=== PATIENT | female | born 1980 | race Two or more races ===

== ENCOUNTER 2023-03-14 21:11 | Inpatient (IN) | payer MEDICAID, OTHER ==
[~2023-03-14] VITALS: Ht 162.6 cm; Wt 81.8 kg
[2023-03-14] MEDS ORDERED: DICYCLOMINE HCL 10 MG CAPSULE PO PRN (23:00)
[2023-03-14] MEDS ORDERED: METOCLOPRAMIDE HCL 5 MG/ML 2 ML VIAL IVP PRN (23:00)
[2023-03-14] MEDS ORDERED: LOPERAMIDE HCL 2 MG CAPSULE PO PRN (23:00)
[2023-03-14] MEDS ORDERED: LORazepam 2 MG/ML VIAL IVP PRN (23:00)
[2023-03-14] MEDS ORDERED: SODIUM CHLORIDE 0.9% 1,000 ML IV ONE (23:00)
[2023-03-15 00:03] LABS: BASOPHILS % (AUTO) 0.9 % (0.0-2.0); EOSINOPHILS % (AUTO) 5.3 % (1.0-6.0); HEMATOCRIT 35.5 % (36-46); HEMOGLOBIN 11.6 g/dL (12.0-16.0); LYMPHOCYTES # (AUTO) 2.6 K/uL (1.0-4.8); LYMPHOCYTES % (AUTO) 42.2 % (22.0-44.0); MEAN CORPUSCULAR HEMOGLOBIN 27.1 pg (26.0-34.0); MEAN CORPUSCULAR HGB CONC 32.8 G/dL (31.0-37.0); MEAN CORPUSCULAR VOLUME 83 fL (80-100); MONOCYTES # (AUTO) 0.5 K/uL (0.1-1.0); NEUTROPHILS # (AUTO) 2.7 K/uL (1.8-7.7); NEUTROPHILS % (AUTO) 43.6 % (40.0-70.0); PLATELET COUNT (AUTO) 312 K/uL (150-450); RED BLOOD CELL COUNT(AUTO) 4.28 MIL/uL (4.00-5.20); RED CELL DISTRIBUTION WIDTH 14.2 % (11.5-14.5)
[2023-03-15 00:12] LABS: ANION GAP 8 mmol/L (8-16); CALCIUM, TOTAL 8.7 mg/dL (8.8-10.5); CARBON DIOXIDE 31 mmol/L (22-29); CHLORIDE 103 mmol/L (98-107); GLOMERULAR FILTR. RATE CALC > 60 mL/min (>60); GLUCOSE,RANDOM 91 mg/dL (70-110); POTASSIUM 3.6 mmol/L (3.5-5.1); SODIUM SERUM 142 mmol/L (136-145)
[2023-03-15 00:16] LABS: COVID AG,FIA SOURCE NASOPHARYNGEAL
[2023-03-15 00:18] LABS: ALANINE AMINOTRANSFERASE 25 U/L (12-78); ALBUMIN 3.2 g/dL (3.4-5.0); ALKALINE PHOSPHATASE 81 U/L (46-116); ASPARTATE AMINOTRANSFERASE 19 U/L (15-37); BILIRUBIN,TOTAL 0.2 mg/dL (0.1-1.0); TOTAL PROTEIN, SERUM 6.9 g/dL (6.4-8.2)
[2023-03-15 00:20] LABS: APPEARANCE,URINE CLEAR (CLEAR); BILIRUBIN,URINE NEGATIVE (NEGATIVE); GLUCOSE, URINE (UA) NEGATIVE (NEGATIVE); KETONES,URINE NEGATIVE (NEGATIVE); LEUKOCYTE ESTERASE ,URINE SMALL (NEGATIVE); NITRATE,URINE POSITIVE (NEGATIVE); OCCULT BLOOD,URINE NEGATIVE (NEGATIVE); PROTEIN,URINE NEGATIVE (NEGATIVE); SPECIFIC GRAVITIY, URINE 1.023 (1.003-1.030); UROBILINOGEN,URINE <=1.0 mg/dL (<=1.0)
[2023-03-15 00:26] LABS: AMMONIA < 10 umol/L (11-32)
[2023-03-15 00:27] LABS: AMPHET/METH SCREEN,URINE POSITIVE (NEGATIVE); BARBITURATE SCREEN, URINE NEGATIVE (NEGATIVE); BENZODIAZEPINES SCREEN,URINE POSITIVE (NEGATIVE); CANNABINOID SCREEN,URINE POSITIVE (NEGATIVE); COCAINE SCREEN,URINE NEGATIVE (NEGATIVE); METHADONE SCREEN, URINE NEGATIVE (NEGATIVE); OPIATE SCREEN,URINE NEGATIVE (NEGATIVE); PHENCYCLIDINE SCREEN,URINE NEGATIVE (NEGATIVE)
[2023-03-15 00:39] LABS: RBC,URINE None Seen /HPF (0-2)
[2023-03-15 00:40] LABS: BACTERIA,URINE Many /HPF (None Seen)
[2023-03-15] MEDS ORDERED: CEPHALEXIN MONOHYDRATE 500 MG CAPSULE PO ONE (01:45)
[2023-03-15 20:20] VITALS: BP 137/88
[2023-03-15] MEDS: TEMAZEPAM 15 MG CAPSULE PO SCH (20:59)
[2023-03-16 05:12] VITALS: BP 143/99
[2023-03-16 07:30] VITALS: BP 143/89
[2023-03-16] MEDS: OXcarbazepine 300 MG TABLET PO SCH ×2 (11:48→19:58)
[2023-03-16] MEDS: SERTRALINE HCL 50 MG TABLET PO SCH (11:48)
[2023-03-16 16:00] VITALS: BP 119/80
[2023-03-16 19:34] VITALS: BP 138/86
[2023-03-16] MEDS: TEMAZEPAM 15 MG CAPSULE PO SCH (19:57)
[2023-03-16] MEDS ORDERED: TraZODone HCL 100 MG TABLET PO SCH (21:00)
[2023-03-17 04:20] VITALS: BP 121/57
[2023-03-17 07:39] VITALS: BP 108/63
[2023-03-17] MEDS: SERTRALINE HCL 50 MG TABLET PO SCH (08:04)
[2023-03-17] MEDS: OXcarbazepine 300 MG TABLET PO SCH (08:04)
[2023-03-17] MEDS ORDERED: SERT-158 PO (10:57)
[2023-03-17] MEDS ORDERED: OXCA300T70 PO (10:57)
[2023-03-17] MEDS ORDERED: TRAZ-257 PO (10:58)
[2023-03-17 15:39] VITALS: BP 122/79
== END 2023-03-17 18:20 | DRG 897 ==
LOC: EMS 21:11 → AHU 22:59 → 6S 03-15 18:54
PROVIDERS: ADMIT Internal Medicine; ATTEND Internal Medicine
DX: F13.239 Sedative, hypnotic or anxiolytic dependence with withdrawal, unspecified (principal); F33.2 Major depressive disorder, recurrent severe without psychotic features; F19.10 Other psychoactive substance abuse, uncomplicated; Z20.822 Contact with and (suspected) exposure to COVID-19; F41.9 Anxiety disorder, unspecified; Z79.899 Other long term (current) drug therapy
CPT/HCPCS: 80053; 80307; 81001; 82140; 84484; 84703; 85025; 87086; 87186; 93005; 99285; G0378; G0480; J2060; J7030

== ENCOUNTER 2025-03-02 12:20 | Emergency (ER) | payer OTHER ==
[~2025-03-02] VITALS: Ht 165.1 cm; Wt 79.1 kg
[~2025-03-02 12:20] MED LIST: OXCA300T70 PO; SERT-158 PO; TRAZ-257 PO
[2025-03-02 12:30] VITALS: TEMP 98.2
[2025-03-02 13:05] LABS: COVID AG,FIA SOURCE NASAL SWAB
[2025-03-02 13:38] LABS: RAPID GROUP A STREP NEGATIVE (NEGATIVE)
[2025-03-02 13:41] LABS: INFLUENZA TYPE A NEGATIVE FOR TYPE A (NEGATIVE); INFLUENZA TYPE B NEGATIVE FOR TYPE B (NEGATIVE); SARS-COV2 (COVID) ANTIGEN,FIA Negative (Negative)
[2025-03-02] MEDS: SODIUM CHLORIDE 0.9% 1,000 ML IV ONE (14:55)
[2025-03-02] MEDS: METOCLOPRAMIDE HCL 5 MG/ML 2 ML VIAL IVP ONE (14:55)
[2025-03-02 15:14] LABS: BASOPHILS % (AUTO) 0.7 % (0.0-2.0); EOSINOPHILS % (AUTO) 0.5 % (1.0-6.0); HEMATOCRIT 34.4 % (36-46); HEMOGLOBIN 11.5 g/dL (12.0-16.0); LYMPHOCYTES # (AUTO) 1.2 K/uL (1.0-4.8); LYMPHOCYTES % (AUTO) 20.8 % (22.0-44.0); MEAN CORPUSCULAR HEMOGLOBIN 27.1 pg (26.0-34.0); MEAN CORPUSCULAR HGB CONC 33.3 G/dL (31.0-37.0); MEAN CORPUSCULAR VOLUME 81 fL (80-100); MONOCYTES # (AUTO) 0.3 K/uL (0.1-1.0); MONOCYTES % (AUTO) 4.7 % (2.0-9.0); NEUTROPHILS # (AUTO) 4.1 K/uL (1.8-7.7); NEUTROPHILS % (AUTO) 73.3 % (40.0-70.0); PLATELET COUNT (AUTO) 281 K/uL (150-450); RED BLOOD CELL COUNT(AUTO) 4.23 MIL/uL (4.00-5.20); RED CELL DISTRIBUTION WIDTH 13.4 % (11.5-14.5); WHITE BLOOD COUNT (AUTO) 5.7 K/uL (4.5-11.0)
[2025-03-02 15:20] LABS: ANION GAP 12 mmol/L (8-16); CALCIUM, TOTAL 8.4 mg/dL (8.8-10.5); CARBON DIOXIDE 28 mmol/L (22-29); CHLORIDE 101 mmol/L (98-107); GLOMERULAR FILTR. RATE CALC > 60 mL/min (>60); GLUCOSE,RANDOM 100 mg/dL (70-110); POTASSIUM 3.7 mmol/L (3.5-5.1); SODIUM SERUM 141 mmol/L (136-145); UREA NITROGEN, BLOOD 5 mg/dL (7-18)
[2025-03-02 15:32] LABS: ALANINE AMINOTRANSFERASE 23 U/L (12-78); ALBUMIN 3.8 g/dL (3.4-5.0); ALKALINE PHOSPHATASE 66 U/L (46-116); ASPARTATE AMINOTRANSFERASE 17 U/L (15-37); BILIRUBIN,TOTAL 0.2 mg/dL (0.1-1.0); HCG,QUANTITATIVE < 1 mIU/mL (0-6); LIPASE 13 U/L (16-77); TOTAL PROTEIN, SERUM 7.4 g/dL (6.4-8.2)
[2025-03-02] MEDS ORDERED: ONDA-104 PO (17:09)
[2025-03-02 17:15] VITALS: BP 131/87; PULSE 94; RESP 20; O2SAT 98
== END 2025-03-02 17:18 | disposition home or self-care (01) ==
LOC: EMS 12:20
DX: A08.4 Viral intestinal infection, unspecified (principal); J02.9 Acute pharyngitis, unspecified; F15.10 Other stimulant abuse, uncomplicated; Z79.899 Other long term (current) drug therapy; Z20.822 Contact with and (suspected) exposure to COVID-19
CPT/HCPCS: 99283; 96374; 96361; 87426; 80048; 80076; 83690; 84702; 85025; 87430; 87804; 36415; J2765; J7030